=== PATIENT | male | born 1970 | race Caucasian/White ===

== ENCOUNTER 2019-06-17 11:31 | Day surgery (SDC) | payer MEDICARE, MEDICAID ==
--- NOTE | 2019-06-17 15:18 | OP ---
DATE OF PROCEDURE: 06/17/2019 TITLE OF PROCEDURE: Attempted colonoscopy. PREPROCEDURE DIAGNOSIS: Average risk colon cancer screening. POSTPROCEDURE DIAGNOSES: 1. Exam to rectum, inadequate bowel preparation. 2. Unable to complete colonoscopy due to the presence of thick liquid and semi-formed stool in the colon and rectum. PROCEDURE IN DETAIL: Written informed consent was obtained from the patient's mother. He was brought to the endoscopy suite. Total intravenous anesthesia was provided by Shavon Wheeler CRNA. The patient was placed in the left lateral decubitus position. A digital rectal exam was performed, which revealed some soft stool at the end of the examining finger. A Pentax video colonoscope was inserted through the anal canal and carefully advanced into the rectum. At this point, the colonoscope could not be advanced further in a safe manner due to the presence of a large amount of thick liquid and semi-formed stool coating the mucosal george and clouding the instrument lens. Copious irrigation was used, but it was apparent that the stool burden in the colon was much more than irrigation could relieve. Thus, it was decided at that point to terminate the procedure. The rectum was decompressed as the colonoscope was removed from the patient. He was transferred to the Day Stay surgery area for postprocedure monitoring. There were no immediate complications. RECOMMENDATIONS: 1. We will contact [facility] to reschedule the colonoscopy. 2. We will recommend 2 days of clear liquids with Dulcolax laxative tablets daily for 2 days, then the usual GoLYTELY preparation. Job ID: [id number]
== END 2019-06-17 15:10 | disposition home or self-care (01) ==
LOC: SDC 11:31
PROVIDERS: ATTEND Internal Medicine Gastroenterology
PROC: 0DJD8ZZ Inspection of Lower Intestinal Tract, Via Natural or Artificial Opening Endoscopic (ICD-10-PCS; principal; 2019-06-17)
DX: Z12.11 Encounter for screening for malignant neoplasm of colon (principal); F32.9 Major depressive disorder, single episode, unspecified; E78.5 Hyperlipidemia, unspecified; I10 Essential (primary) hypertension; M19.90 Unspecified osteoarthritis, unspecified site; M85.80 Other specified disorders of bone density and structure, unspecified site; Z79.1 Long term (current) use of non-steroidal anti-inflammatories (NSAID); Z79.899 Other long term (current) drug therapy

== ENCOUNTER 2019-11-04 09:50 | Outpatient (CLI) | payer MEDICARE, MEDICAID | END 2019-11-04 09:51 | disposition home or self-care (01) | PROVIDERS: ATTEND Family Medicine | DX: R13.12 Dysphagia, oropharyngeal phase (principal); R63.3 Feeding difficulties; R05 Cough | CPT/HCPCS: 74230 ==

== ENCOUNTER 2020-11-13 07:20 | Outpatient (CLI) | payer MEDICARE, MEDICAID ==
[2020-11-14 13:10] LABS: SARS-CoV-2 MS2 Positive; SARS-CoV-2 N Gene Negative; SARS-CoV-2 S Gene Negative; SARS-CoV-2 by NAA Not Detected (NotDetected); SARS-CoV-2 orf1ab Negative
== END 2020-11-13 07:21 | disposition home or self-care (01) ==
LOC: LABBT 07:20
PROVIDERS: ATTEND Internal Medicine Gastroenterology
DX: Z01.812 Encounter for preprocedural laboratory examination (principal); Z20.822 Contact with and (suspected) exposure to COVID-19
CPT/HCPCS: U0003; U0005; 87635

== ENCOUNTER 2020-11-16 11:22 | Day surgery (SDC) | payer MEDICARE, MEDICAID ==
[2020-11-15 12:08] VITALS: BMI 26.7
[~2020-11-16 11:22] MED LIST: Lidocaine 1% PF 5 ML VIAL ONE; PROPOFOL 200 MG/20 ML VIAL ONE
--- NOTE | 2020-11-16 14:53 | OP ---
DATE OF PROCEDURE: 11/16/2020 TITLE OF PROCEDURE: EGD with biopsy. PREPROCEDURE DIAGNOSIS: Chronic cough, suspected reflux. POSTPROCEDURE DIAGNOSES: 1. Exam to 2nd portion of duodenum. 2. 2 to 3 cm hiatal hernia located at 43 to 45 cm from the incisors. 3. Mild grade A distal esophagitis, biopsied. 4. No evidence of esophageal stricture or esophageal ulcer. 5. Mild antral gastritis, biopsied. 6. Normal duodenum. 7. Otherwise, normal EGD. DESCRIPTION OF PROCEDURE: A verbal phone consent was obtained from Mrs. Chong Ryan. The phone consent was witnessed by 2 registered nurses. The patient was brought to the endoscopy suite. Total intravenous anesthesia was administered by [facility] anesthesia. The patient was placed in the left lateral decubitus position. A bite block was inserted into the mouth. When adequate sedation was achieved, a Pentax video diagnostic gastroscope was introduced into the oral cavity and the esophagus was carefully intubated. The gastroscope was advanced under direct visualization to the 2nd portion of the duodenum. Endoscopic findings revealed a grossly normal appearing esophagus with overall normal motility and no evidence of esophageal stricture or esophageal ulcer. At 43 cm from the incisors, a 2 to 3 cm sliding hiatal hernia was identified. There was evidence of grade A distal esophagitis at 43 cm and biopsies were obtained for histology. The stomach was entered and carefully examined. This included a retroflexed view of the cardia and fundus. Mild antral gastritis characterized by patchy erythema, edema, and superficial erosions were noted. Biopsies were obtained for histology. No discrete gastric ulcer was identified. The duodenum from the bulb to the 2nd portion was then inspected and appeared normal. The stomach was decompressed as the endoscope was completely removed from the patient. He was then repositioned for the colonoscopy. RECOMMENDATIONS: 1. Await biopsy results. 2. Forward pathology results to Dr. Snider in 1 week. 3. Anti reflux measures to include sitting upright for at least 90 minutes after each meal. 4. Initiate Nexium 40 mg p.o. q.a.m. The capsule can be opened and contents mixed in 1 tablespoon of applesauce if needed. 5. Follow up in the clinic in 6 to 8 weeks. Job ID: [id number] [facility]
--- NOTE | 2020-11-16 15:23 | OP ---
DATE OF PROCEDURE: 11/16/2020 TITLE OF PROCEDURE: Aborted colonoscopy. PREPROCEDURE DIAGNOSIS: Average-risk colon cancer screening. POSTPROCEDURE DIAGNOSIS: Colonoscopy not performed due to presence of solid and semi-solid stool in the rectum. ANESTHESIA: Total intravenous anesthesia provided by Dr. Naresh Carey and associates. DESCRIPTION OF PROCEDURE: Verbal phone consent was obtained from the patient's mother, Mrs. Laurel Ryan. Upon completion of the EGD, the patient was repositioned for the colonoscopy. A digital rectal exam was performed, which revealed the presence of solid pieces and semi-solid brown stool in the rectal vault. A very brief inspection of the distal rectum with the colonoscope showed stool coating all george of the rectum, which precluded further progress of the examination. At that point, attempts to begin the procedure were terminated and the patient was transferred to a Day Stay Surgery for postprocedure monitoring. There were no immediate complications. RECOMMENDATIONS: 1. Resume previous diet and medications. 2. Further recommendations as per my EGD report. 3. Will ask Dr. Snider to consider Cologuard screening instead of colonoscopy due to 2 failed attempts to perform a colonoscopy in the last year. 4. Follow up visit to our office in early December as per my EGD report. Job ID: [id number] [facility]
== END 2020-11-16 14:45 | disposition short-term general hospital (02) ==
LOC: SDC 11:22
PROVIDERS: ATTEND Internal Medicine Gastroenterology
PROC: 0DB58ZX Excision of Esophagus, Via Natural or Artificial Opening Endoscopic, Diagnostic (ICD-10-PCS; principal; 2020-11-16)
PROC: 0DJD8ZZ Inspection of Lower Intestinal Tract, Via Natural or Artificial Opening Endoscopic (ICD-10-PCS; 2020-11-16)
DX: Z12.11 Encounter for screening for malignant neoplasm of colon (principal); K44.9 Diaphragmatic hernia without obstruction or gangrene; K29.70 Gastritis, unspecified, without bleeding; K21.00 Gastro-esophageal reflux disease with esophagitis, without bleeding; Z79.899 Other long term (current) drug therapy
CPT/HCPCS: 88305; 88312; 88313; J2704